=== PATIENT | female | born 2000 | race Hispanic/Latino ===

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

== ENCOUNTER 2020-07-20 00:42 | Emergency (ER) | payer SELFPAY ==
[2020-07-20 01:24] LABS: Bilirubin Negative (Negative); Blood, Urine Negative (Negative); Clarity Clear (Clear); Glucose, Urine (Dipstick) Negative (Negative); Ketone, Urine Negative (Negative); Leukocyte Negative (Negative); Nitrite Negative (Negative); Protein, Urine (Dipstick) Negative (Neg-Trace)
[2020-07-20 01:28] LABS: Specific Gravity, Urine 1.019 (1.002-1.036)
[2020-07-20 01:29] LABS: Pregnancy Test - Urine (BHCG) Negative (Negative); Pregu Control Background? CLEAR/WHITE (CLR/WHITE); Pregu Control Bar Appear? YES (CONTROL BAR); Specific Gravity 1.019 (1.002-1.036)
== END 2020-07-20 01:45 | disposition home or self-care (01) ==
LOC: BURERS 00:42
DX: R10.84 Generalized abdominal pain (principal); R19.7 Diarrhea, unspecified
CPT/HCPCS: 81003; 81025; 96372; 99284; J0500

== ENCOUNTER 2021-03-03 11:04 | Emergency (ER) | payer SELFPAY ==
[2021-03-03 11:45] LABS: #Basophils 0.1 thou/uL (0.0-0.2); #Eosinphils 0.2 thou/uL (0.0-0.7); #Lymphocytes 3.1 thou/uL (1.20-3.40); #Monocytes 0.6 thou/uL (0.11-0.59); #Neutrophils 6.7 thou/uL (1.40-6.50); %Basophils 0.6 % (0.0-1.0); %Lymphocytes 29.3 % (21.0-51.0); %Monocytes 5.2 % (0.0-10.0); %Neutrophils 62.9 % (42.0-75.0); Hemoglobin 13.1 g/dL (12.0-16.0); Mean Corpuscular HGB CONC 33.7 g/dL (32.0-36.0); Mean Corpuscular Hemoglobin 32.7 pg (27.0-31.0); Mean Corpuscular Volume 97.1 fL (78.0-98.0); Mean Platelet Volume 8.9 fL (7.4-10.4); Platelet Count 236 thou/uL (130-400); RBC Distribution Width 11.5 % (11.5-14.5); White Blood Cell (WBC) Count 10.7 thou/uL (4.8-10.8)
[2021-03-03 11:47] LABS: Bilirubin Negative (Negative); Blood, Urine Negative (Negative); Clarity Clear (Clear); Glucose, Urine (Dipstick) Negative (Negative); Ketone, Urine Negative (Negative); Leukocyte Trace (Negative); Nitrite Negative (Negative); Protein, Urine (Dipstick) Negative (Neg-Trace); Specific Gravity, Urine 1.025 (1.005-1.030); pH, Urine 6.5 (5.0-9.0)
[2021-03-03 11:54] LABS: Bacteria/HPF 1+ HPF (None Seen); RBC/HPF 0-3 HPF (0-3); WBC/HPF 0-3 HPF (0-3)
[2021-03-03 12:03] LABS: ALT (SGPT) 316 U/L (8-55); AST (SGOT) 225 U/L (5-34); Albumin 3.9 g/dL (3.5-5.0); Alkaline Phosphatase 93 U/L (40-110); Anion Gap 13 mmol/L (10-20); BUN (Urea Nitrogen) 8 mg/dL (7.0-18.7); Bilirubin, Total 0.4 mg/dL (0.2-1.2); Calc. Creatinine Clearance 0 mL/min (70-130); Calcium 9.5 mg/dL (7.8-10.44); Carbon Dioxide 22 mmol/L (22-29); Chloride 106 mmol/L (98-107); Globulin 3.1 g/dL (2.4-3.5); Potassium 3.7 mmol/L (3.5-5.1); Sodium 137 mmol/L (136-145)
[2021-03-03 12:06] LABS: Glucose 152 mg/dL (70-105)
== END 2021-03-03 12:16 | disposition short-term general hospital (02) ==
LOC: BURERS 11:04
DX: O99.891 Other specified diseases and conditions complicating pregnancy (principal); R10.2 Pelvic and perineal pain
CPT/HCPCS: 36415; 80053; 81003; 81015; 83615; 84550; 84702; 85025; 99284

== ENCOUNTER 2021-07-17 08:33 | Emergency (ER) | payer OTHER ==
[2021-07-17] MEDS ORDERED: Neomycin-Polymyxin-Hc 7.5 ML BOT ONE (08:53)
[2021-07-17] MEDS ORDERED: NEOMYCIN-POLYMYXIN-HC EAR SUSP 200 DROP/10 ML BOT ONE (08:54)
== END 2021-07-17 08:59 | disposition home or self-care (01) ==
LOC: BURERS 08:33
DX: H60.502 Unspecified acute noninfective otitis externa, left ear (principal)
CPT/HCPCS: 99282

== ENCOUNTER 2021-10-18 13:45 | Emergency (ER) | payer OTHER ==
[2021-10-18 14:18] LABS: #Basophils 0.1 thou/uL (0.0-0.2); #Eosinphils 0.1 thou/uL (0.0-0.7); #Lymphocytes 1.6 thou/uL (1.20-3.40); #Monocytes 0.4 thou/uL (0.11-0.59); #Neutrophils 12.2 thou/uL (1.40-6.50); %Basophils 0.4 % (0.0-1.0); %Eosinophils 0.5 % (0.0-10.0); %Lymphocytes 10.8 % (21.0-51.0); %Neutrophils 85.3 % (42.0-75.0); Hemoglobin 13.5 g/dL (12.0-16.0); Mean Corpuscular Hemoglobin 31.9 pg (27.0-31.0); Mean Corpuscular Volume 93.9 fL (78.0-98.0); Mean Platelet Volume 10.3 fL (7.4-10.4); Platelet Count 232 thou/uL (130-400); RBC Distribution Width 11.8 % (11.5-14.5); Red Blood Cell (RBC) Count 4.22 mill/uL (4.20-5.40); White Blood Cell (WBC) Count 14.3 thou/uL (4.8-10.8)
[2021-10-18] MEDS ORDERED: Ondansetron PF 4 MG/2 ML Vial ONE (14:21)
[2021-10-18] MEDS ORDERED: Ketorolac Tromethamine 30 MG/ML VIAL ONE (14:21)
[2021-10-18 14:25] LABS: Bilirubin Negative (Negative); Blood, Urine Moderate (Negative); Clarity Clear (Clear); Glucose, Urine (Dipstick) Negative (Negative); Ketone, Urine Negative (Negative); Leukocyte Small (Negative); Nitrite Negative (Negative); Protein, Urine (Dipstick) Negative (Neg-Trace); Urobilinogen 0.2 mg/dL (Less than 2); pH, Urine 5.5 (5.0-9.0)
[2021-10-18 14:28] LABS: RBC/HPF 0-3 HPF (0-3); Specific Gravity, Urine 1.031 (1.002-1.036)
[2021-10-18 14:29] LABS: Bacteria/HPF Rare-Few HPF (None Seen); Squamous Epithelial 0-3 HPF (0-3)
[2021-10-18 14:35] LABS: ALT (SGPT) 55 U/L (8-55); AST (SGOT) 29 U/L (5-34); Albumin 4.5 g/dL (3.5-5.0); Alkaline Phosphatase 105 U/L (40-110); Anion Gap 17 mmol/L (10-20); BUN (Urea Nitrogen) 9 mg/dL (7.0-18.7); Bilirubin, Total 0.3 mg/dL (0.2-1.2); Calc. Creatinine Clearance 0 mL/min (70-130); Calcium 9.5 mg/dL (7.8-10.44); Carbon Dioxide 21 mmol/L (22-29); Chloride 110 mmol/L (98-107); Globulin 3.2 g/dL (2.4-3.5); Glucose 88 mg/dL (70-105); Potassium 4.1 mmol/L (3.5-5.1); Protein, Total 7.7 g/dL (6.0-8.3); Sodium 144 mmol/L (136-145)
[2021-10-18 14:52] LABS: Pregnancy Test - Urine (BHCG) POSITIVE (Negative)
[2021-10-18 14:53] LABS: Pregu Control Background? CLEAR/WHITE (CLR/WHITE); Pregu Control Bar Appear? YES (CONTROL BAR); Specific Gravity 1.031 (1.002-1.036)
[2021-10-18] MEDS ORDERED: Piperacillin/Tazobactam 4.5 GM VIAL ONE (15:44)
[2021-10-18] MEDS ORDERED: Sodium Chloride 0.9% 100 ML ONE (15:45)
[2021-10-18 16:54] LABS: SARS-CoV-2 NAA Rapid Test Not Detected (NotDetected)
== END 2021-10-18 16:23 | disposition short-term general hospital (02) ==
LOC: BURERS 13:45
DX: K35.80 Unspecified acute appendicitis (principal); N83.209 Unspecified ovarian cyst, unspecified side; Z20.822 Contact with and (suspected) exposure to COVID-19
CPT/HCPCS: 36415; 74177; 80053; 81003; 81015; 81025; 83605; 84702; 85025; 96361; 96365; 96375; J1885; J2405; J2543; J3490; U0002

== ENCOUNTER 2022-01-13 15:47 | Emergency (ER) | payer OTHER | END 2022-01-13 15:56 | disposition home or self-care (01) | LOC: BURERS 15:47 | DX: Z53.21 Procedure and treatment not carried out due to patient leaving prior to being seen by health care provider (principal) ==

== ENCOUNTER 2022-04-16 11:10 | Emergency (ER) | payer OTHER | END 2022-04-16 11:36 | disposition home or self-care (01) | LOC: BURERS 11:10 | DX: S39.012A Strain of muscle, fascia and tendon of lower back, initial encounter (principal); F17.290 Nicotine dependence, other tobacco product, uncomplicated; X50.1XXA Overexertion from prolonged static or awkward postures, initial encounter | CPT/HCPCS: 99283 ==

== ENCOUNTER 2022-05-11 11:12 | Emergency (ER) | payer OTHER | END 2022-05-11 11:44 | disposition home or self-care (01) | LOC: BURERS 11:12 | DX: B34.9 Viral infection, unspecified (principal); Z20.822 Contact with and (suspected) exposure to COVID-19; F17.290 Nicotine dependence, other tobacco product, uncomplicated | CPT/HCPCS: 87804; 99284; U0003; U0005 ==

== ENCOUNTER 2024-04-11 18:42 | Emergency (ER) | payer OTHER ==
[2024-04-11] MEDS ORDERED: Acetaminophen 500 MG TAB ONE (19:00)
[2024-04-11] MEDS ORDERED: Ondansetron ODT 4 MG TAB ONE (19:00)
[2024-04-11 19:12] LABS: #Monocytes 0.5 thou/uL (0.11-0.59); #Neutrophils 9.3 thou/uL (1.40-6.50); %Basophils 0.2 % (0.0-1.0); %Eosinophils 0.3 % (0.0-10.0); %Lymphocytes 8.9 % (21.0-51.0); %Monocytes 4.3 % (0.0-10.0); %Neutrophils 86.3 % (42.0-75.0); Hematocrit 39.8 % (36.0-47.0); Hemoglobin 13.2 g/dL (12.0-16.0); Mean Corpuscular HGB CONC 33.2 g/dL (32.0-36.0); Mean Corpuscular Hemoglobin 30.5 pg (27.0-31.0); Mean Corpuscular Volume 91.8 fl (78.0-98.0); Mean Platelet Volume 8.5 fL (7.4-10.4); Platelet Count 213 10x3/uL (130-400); RBC Distribution Width 11.9 % (11.5-14.5); Red Blood Cell (RBC) Count 4.33 mill/uL (4.20-5.40); White Blood Cell (WBC) Count 10.7 10x3/uL (4.8-10.8)
[2024-04-11 19:31] LABS: ALT (SGPT) 37 U/L (8-55); AST (SGOT) 27 U/L (5-34); Albumin 2.9 g/dL (3.5-5.0); Alkaline Phosphatase 158 U/L (40-110); Anion Gap 16 mmol/L (10-20); BUN (Urea Nitrogen) 6 mg/dL (7.0-18.7); Bilirubin, Total 0.5 mg/dL (0.2-1.2); Calc. Creatinine Clearance 0 mL/min (70-130); Calcium 9.3 mg/dL (7.8-10.44); Carbon Dioxide 18 mmol/L (22-29); Chloride 107 mmol/L (98-107); Estimated GFR 132; Globulin 4.1 g/dL (2.4-3.5); Glucose 88 mg/dL (70-105); Lipase 27 U/L (8-78); Potassium 3.7 mmol/L (3.5-5.1); Sodium 137 mmol/L (136-145)
[2024-04-11 20:20] LABS: Bilirubin Moderate (Negative); Blood, Urine Negative (Negative); Clarity Cloudy (Clear); Glucose, Urine (Dipstick) Negative (Negative); Ketone, Urine 40 mg/dL (Negative); Leukocyte Negative (Negative); Nitrite Negative (Negative); Protein, Urine (Dipstick) > or equal to 300 mg/dL (Neg-Trace); Specific Gravity, Urine 1.025 (1.005-1.030); pH, Urine 6.5 (5.0-9.0)
[2024-04-11 20:37] LABS: RBC/HPF 0-3 HPF (0-3)
[2024-04-11 20:38] LABS: Bacteria/HPF 1+ HPF (None Seen); CAUTI Indications for Culture Pelvic or flank pain; Squamous Epithelial 0-3 HPF (0-3); Urine Culture Reflex No No; WBC/HPF 0-3 HPF (0-3)
== END 2024-04-11 21:01 | disposition home or self-care (01) ==
LOC: BURERS 18:42
DX: O21.9 Vomiting of pregnancy, unspecified (principal); O99.891 Other specified diseases and conditions complicating pregnancy; R10.33 Periumbilical pain; R19.7 Diarrhea, unspecified; O99.333 Smoking (tobacco) complicating pregnancy, third trimester; F17.200 Nicotine dependence, unspecified, uncomplicated; Z3A.34 34 weeks gestation of pregnancy; Z55.6 Problems related to health literacy
CPT/HCPCS: 80053; 81001; 83690; 85025; 99284; Q0162